=== PATIENT | female | born 1940 | race Caucasian/White ===

== ENCOUNTER 2019-02-19 11:47 | Inpatient (IN) | payer MEDICARE ==
[~2019-02-19 11:47] MED LIST: Ondansetron PF 4 MG/2 ML Vial ONE; PHENYLEPHRINE-NS 100 MCG/ML 10 ML SYRINGE ONE; PROPOFOL 200 MG/20 ML VIAL ONE
[2019-02-19] MEDS ORDERED: Morphine 4 MG/ML VIAL ONE ×2 (12:25→15:19)
[2019-02-19 12:36] LABS: #Eosinphils 0.4 thou/uL (0.0-0.7); #Lymphocytes 1.2 thou/uL (1.20-3.40); #Monocytes 0.6 thou/uL (0.11-0.59); #Neutrophils 8.4 thou/uL (1.40-6.50); %Basophils 0.4 % (0.0-1.0); %Eosinophils 3.7 % (0.0-10.0); %Lymphocytes 11.6 % (21.0-51.0); %Monocytes 5.8 % (0.0-10.0); %Neutrophils 78.5 % (42.0-75.0); Hemoglobin 11.9 g/dL (12.0-16.0); Mean Corpuscular HGB CONC 32.1 g/dL (32.0-36.0); Mean Corpuscular Hemoglobin 26.5 pg (27.0-31.0); Mean Corpuscular Volume 82.6 fL (78.0-98.0); Mean Platelet Volume 6.9 fL (7.4-10.4); Platelet Count 232 thou/uL (130-400); RBC Distribution Width 13.6 % (11.5-14.5); Red Blood Cell (RBC) Count 4.47 mill/uL (4.20-5.40); White Blood Cell (WBC) Count 10.7 thou/uL (4.8-10.8)
[2019-02-19 12:41] LABS: PTT 37.4 SEC (22.9-36.1); Prothrombin Time 13.6 SEC (12.0-14.7)
--- NOTE | 2019-02-19 12:51 | RAD ---
EXAM: XR Hip Lt 2-3 View PROVIDED CLINICAL HISTORY: Left hip pain status post injury COMPARISON: None FINDINGS: Displaced left femoral neck fracture. No additional fracture is evident. Left hip joint space appears preserved. IMPRESSION: Displaced left femoral neck fracture.
--- NOTE | 2019-02-19 12:52 | RAD ---
EXAM: Portable chest PROVIDED CLINICAL HISTORY: Preop COMPARISON: 04/19/2014 FINDINGS: Cardiac and mediastinal silhouette is stable in appearance. No focal consolidation, pleural fluid or pneumothorax evident. IMPRESSION: No evidence for an acute cardiopulmonary process.
[2019-02-19 12:55] LABS: ALT (SGPT) 15 U/L (8-55); AST (SGOT) 18 U/L (5-34); Albumin 3.8 g/dL (3.4-4.8); Alkaline Phosphatase 70 U/L (40-150); Anion Gap 12 mmol/L (10-20); BUN (Urea Nitrogen) 26 mg/dL (9.8-20.1); Bilirubin, Total 0.3 mg/dL (0.2-1.2); Calc. Creatinine Clearance 0 mL/min (70-130); Carbon Dioxide 22 mmol/L (23-31); Chloride 109 mmol/L (98-107); Estimated GFR-MDRD 50; Globulin 2.7 g/dL (2.4-3.5); Glucose 116 mg/dL (83-110); Potassium 4.6 mmol/L (3.5-5.1); Protein, Total 6.5 g/dL (6.0-8.3); Sodium 138 mmol/L (136-145)
[2019-02-19] MEDS ORDERED: Vancomycin HCl 1.5 GM in Sodium Chloride 0.9% 250 ML 300 ML IVPB SCH ×2 (14:15→16:00)
[2019-02-19] MEDS ORDERED: Morphine 2 MG/ML SYRINGE SLOW IVP PRN (15:16)
[2019-02-19] MEDS ORDERED: traMADol HCl 50 MG TAB PO PRN (15:16)
[2019-02-19] MEDS ORDERED: Ondansetron ODT 4 MG TAB PO PRN ×2 (15:16→17:38)
[2019-02-19] MEDS ORDERED: Ondansetron PF 4 MG/2 ML Vial IVP PRN ×2 (15:16→17:38)
[2019-02-19] MEDS ORDERED: Cyclobenzaprine 10 MG TAB PO PRN (15:16)
[2019-02-19] MEDS ORDERED: hydrALAZINE 20 MG/ML VIAL SLOW IVP PRN (15:16)
[2019-02-19] MEDS ORDERED: Morphine 4 MG/ML VIAL SLOW IVP PRN (15:16)
[2019-02-19] MEDS ORDERED: Dextrose 5% in Water 1,000 ML IV PRN (15:16)
[2019-02-19] MEDS ORDERED: Acetaminophen 1,000 MG in Premix Bag 1 BAG IVPB SCH (15:16)
[2019-02-19] MEDS ORDERED: Sodium Chloride 0.9% 1,000 ML IV SCH ×2 (15:16→17:45)
[2019-02-19] MEDS ORDERED: Dextrose 50% Abboject 50 ML SYRINGE SLOW IVP PRN (15:16)
--- NOTE | 2019-02-19 15:21 | CON ---
DATE OF CONSULTATION: This is Roman Sanderson PA-C dictating a report for León Quinonez MD. We were asked to see the patient by ER and Trauma. She was leaving [employer], stepped off the curb, fell and ended up fracturing her left femoral neck. No loss of consciousness. No other injuries that she attests to. She has been a patient of ours in the past. She has had bilateral knee replacements by Dr. Murphy. Pain currently is tolerable and she is surrounded by family at bedside. PAST MEDICAL HISTORY: Positive for hypertension, constipation, depression, some glaucoma, arthritic like conditions. PAST SURGICAL HISTORY: Elbow, right eye, and bilateral total knee replacements. SOCIAL HISTORY: Past smoker, quit in the 80s, very rare EtOH beverage. FAMILY HISTORY: For this visit is noncontributory. CURRENT MEDICATIONS: She takes hypertensive medication, three eyedrops for her glaucoma, Meloxicam. They will get us an updated medication list, but she is not on any blood thinners. ALLERGIES: AMOXICILLIN/AUGMENTIN, PYRIDIUM. REVIEW OF SYSTEMS: Positive for left hip pain and other arthritic pains, otherwise no other positive review of systems. PHYSICAL EXAMINATION: GENERAL: Well-nourished, well-developed female, alert and pleasant, in no acute distress. Speech clear. Affect pleasant. Answer questions appropriately. Alert and orient x3. Family is at bedside. HEENT: Normal exam. Face symmetric. Tongue midline. NECK: Supple. Trachea midline. EXTREMITIES: Upper extremities; equal, size, shape symmetry normal bulk and tone. RESPIRATORY: No distress. Breathing comfortably. EXTREMITIES: Lower extremities; equal, size, shape, symmetry. Normal bulk and tone with the exception of left lower extremity a little bit shortened and outward rotated and also some tenderness to palpation over the hip. Bilateral DP, PT pulses are grossly intact and she is able to move her feet and digits well. ASSESSMENT: Left femoral neck fracture. PLAN: I spoke to the patient's family, so she is cleared by Trauma. We would like to do a hemiarthroplasty this afternoon. The patient did have breakfast at 7 and had a small wafer cookie at [employer] around 10. I explained the risks and benefits of surgery. They understand the risks and benefits and all are agreeable to go forth with the hemiarthroplasty today. We will get the patient scheduled consented. Antibiotics ordered and get her on the surgery schedule. Job ID: [id number]
[2019-02-19] MEDS ORDERED: Fentanyl 100 MCG/2 ML VIAL SLOW IVP PRN (15:52)
--- NOTE | 2019-02-19 16:35 | HP ---
This is Joel Patel PA-C dictating a report for Edward Hauser DO. REQUESTING PHYSICIAN: Selvin Alston DO CONSULTATIONS: Orthopedics, Dr. Quinonez. HISTORY OF PRESENT ILLNESS: The patient is an 78-year-old woman, who had just left orthodox, she was speaking with her friend, when she turned to walk away, missed a step and fell landing on her left hip. The patient denies any loss of consciousness or striking her head. Denies any syncopal episodes prior to falling. The patient was brought to the emergency department, where she underwent evaluation and examination and was noted to have a left hip fracture at which time we were asked to evaluate the patient for admission and obtain Orthopedic consultations. ALLERGIES: PENICILLIN AND PYRIDIUM. THE PATIENT STATES PENICILLIN GAVE HER HIVES AND IS UNSURE WHAT HAPPENED WHEN SHE TOOK PYRIDIUM. CURRENT MEDICATIONS: Losartan, meloxicam, eyedrops for glaucoma. PAST MEDICAL HISTORY: Glaucoma, osteoarthritis, hypertension, depression. PAST SURGICAL HISTORY: Bilateral knee replacement, right elbow surgery, and total hysterectomy. SOCIAL HISTORY: The patient lives independently with family. She denies using assistive device. She is a former smoker greater than 30 years ago. She denies drug use and has occasional glass of wine. REVIEW OF SYSTEMS: Ten-point review of systems is negative as otherwise stated. PHYSICAL EXAMINATION: VITAL SIGNS: Blood pressure is 179/74, heart rate is 74, respirations are 16, oxygen saturation is 97% on room air, and temperature is 98.7. GENERAL: The patient is resting comfortably in bed. She is awake, alert, and oriented x3. Mary Coma Scale is 15. HEENT: Head is normocephalic and atraumatic. Eyes, extraocular motion intact. PERRLA bilaterally. Ears are atraumatic without discharge. Nose is atraumatic without discharge. Oropharynx is clear. NECK: Nontender. Trachea is midline. No JVD. CHEST: Clear to auscultation with good inspiratory and expiratory effort. HEART: Regular rate and rhythm, and noticeable distant diastolic murmur. ABDOMEN: Soft, flat, nontender with active bowel sounds. PELVIS: Stable with tenderness to palpation to the left hip consistent with her fracture. EXTREMITIES: Neurovascularly intact x4. The patient does have multiple areas of bruising that she states have been from previous falls. LABORATORY FINDINGS: White blood cell count 10.7, hemoglobin 11.9, hematocrit 36.9, platelets 232. Sodium 138, potassium 4.6, chloride 109, CO2 of 22, BUN 26, creatinine 1.05, glucose 116. LFTs are unremarkable. PT 13.6, INR 1.0, PTT 34.4. RADIOGRAPHIC FINDINGS: AP chest x-ray shows no acute cardiopulmonary process. Views of the left hip showed displaced left femoral neck fracture. ASSESSMENT/PLAN: 1. Status post ground level fall. 2. Left hip fracture. 3. Acute pain secondary to above. 4. History of hypertension, glaucoma, arthritis, and depression. PLAN: Plan will be to admit the patient to the surgical floor. Per discussion with Dr. Quinonez, we will examine the patient in the emergency department. We will take her to the operating room today. Postoperatively, she will have physical and occupational therapy, pulmonary toilet, gastritis, mechanical VTE prophylaxis. Postoperatively, we will talk with Case Management regarding placement. The evaluation, examination, laboratory, and radiographic findings will be discussed with Dr. Hauser after this dictation. Job ID: [id number]
[2019-02-19] MEDS ORDERED: Levofloxacin 500 mg/D5W 100 ml Premix Bag ONE (16:44)
[2019-02-19] MEDS ORDERED: Midazolam HCl 2 mg/2 ml Vial ONE (17:20)
[2019-02-19] MEDS ORDERED: Fentanyl 100 MCG/2 ML VIAL ONE (17:20)
[2019-02-19] MEDS ORDERED: Propofol 500 MG/50 ML VIAL ONE (17:20)
[2019-02-19] MEDS ORDERED: Ketamine 50 MG/ML (10ML VIAL) ONE (17:20)
[2019-02-19] MEDS ORDERED: Fleet Enema 133 ML BOT PR PRN (17:38)
[2019-02-19] MEDS ORDERED: Milk Of Magnesia 30 ML UDCUP PO PRN (17:38)
[2019-02-19] MEDS ORDERED: Cepastat Lozenges 1 LOZ PO PRN (17:38)
[2019-02-19] MEDS ORDERED: Bisacodyl 10 MG SUPP PR PRN (17:38)
[2019-02-19] MEDS ORDERED: Tranexamic Acid 1,000 MG/10 ML VIAL ONE (17:49)
[2019-02-19] MEDS ORDERED: Phenylephrine HCL 10 MG/ML VIAL ONE (17:59)
[2019-02-19] MEDS ORDERED: Promethazine HCl 25 MG/ML VIAL IM PRN (19:26)
[2019-02-19] MEDS ORDERED: Ondansetron HCl/PF 4 MG/2 ML Vial IVP PRN (19:26)
[2019-02-19] MEDS ORDERED: Promethazine HCl 25 MG/ML VIAL SLOW IVP PRN (19:26)
--- NOTE | 2019-02-19 20:29 | RAD ---
EXAM: 2 views of the left hip HISTORY: Left hip arthroplasty for femoral neck fracture COMPARISON: None FINDINGS: 2 views of the left hip shows the patient is status post left hip arthroplasty without andrea hardware lucency or fracture. Air in the soft tissues is from recent surgery. IMPRESSION: Status post left hip arthroplasty without evidence of complication.
[2019-02-19] MEDS ORDERED: Tranexamic Acid 1,000 MG in Sodium Chloride 0.9% 100 ML IVPB SCH (21:00)
[2019-02-19] MEDS: Ibuprofen 800 MG TAB PO SCH (22:20)
[2019-02-19] MEDS: Ferrous Gluconate 324 MG TAB PO SCH (22:21)
[2019-02-19] MEDS: Senokot S 8.6-50 MG TAB PO SCH (22:24)
[2019-02-19] MEDS: Acetaminophen 500 MG TAB PO SCH (23:14)
--- NOTE | 2019-02-20 00:27 | OP ---
DATE OF PROCEDURE: 02/19/2019 PROCEDURE PERFORMED: Left hip hemiarthroplasty for femoral neck fracture. SUPERVISOR CELLARS: Roman Sanderson PA-C BLOOD LOSS: 200. SPECIMEN: None. DRAINS: None. COMPLICATION: None. ANESTHESIA: Spinal anesthetic. DESCRIPTION OF PROCEDURE: The patient was taken to the operating room where spinal anesthesia induced. She received Levaquin and vancomycin preoperatively due to allergies. The left hip was prepped and draped in sterile fashion. The patient was placed in lateral decubitus position. Hip was prepped and draped in usual sterile fashion. We made an oblique incision in the greater trochanter. Dissection was carried down to the IT band, which was divided distally extended proximally. Self-retraining retractors were placed in the wound. Anterior one-third abductor mechanism was taken down using Bovie electrocautery. Hip capsule was incised. The femoral neck was cut and the femoral head was extracted and sized. The acetabulum was explored for loose bodies and loose bodies were removed. The acetabulum was irrigated. The femur was broached up to the appropriate size and appropriate size stem was impacted into place, along with the appropriate head. Hip was reduced without difficulty. Capsule was repaired with #2 Vicryl. Abductor was repaired with #2 Vicryl and #5 Ethibond. IT band was repaired with 2-0 Vicryl, #2 Quill, subcu closed with 0 Quill, skin was closed with 2-0 Monoderm and skin glue was applied. IMPLANTS USED: Stewart Accolade II size 4 stem with a standard neck and a 45 Unitrax head. Job ID: [id number]
[2019-02-20 03:13] VITALS: BMI 38.2
[2019-02-20] MEDS: Acetaminophen 500 MG TAB PO SCH ×4 (05:33→23:56)
[2019-02-20] MEDS: Ibuprofen 800 MG TAB PO SCH ×3 (05:33→21:02)
[2019-02-20 06:09] LABS: Hemoglobin 9.9 g/dL (12.0-16.0); Mean Corpuscular HGB CONC 30.5 g/dL (32.0-36.0); Mean Corpuscular Hemoglobin 25.4 pg (27.0-31.0); Mean Corpuscular Volume 83.4 fL (78.0-98.0); Mean Platelet Volume 6.8 fL (7.4-10.4); Platelet Count 193 thou/uL (130-400); RBC Distribution Width 13.4 % (11.5-14.5); White Blood Cell (WBC) Count 11.2 thou/uL (4.8-10.8)
[2019-02-20 06:10] LABS: #Eosinphils 0.6 thou/uL (0.0-0.7); #Lymphocytes 1.3 thou/uL (1.20-3.40); #Monocytes 0.8 thou/uL (0.11-0.59); #Neutrophils 8.6 thou/uL (1.40-6.50); %Basophils 0.3 % (0.0-1.0); %Eosinophils 5.5 % (0.0-10.0); %Monocytes 6.7 % (0.0-10.0); %Neutrophils 76.4 % (42.0-75.0); Hemoglobin 9.9 g/dL (12.0-16.0); Mean Corpuscular Hemoglobin 25.8 pg (27.0-31.0); Mean Corpuscular Volume 83.4 fL (78.0-98.0); Platelet Count 193 thou/uL (130-400); RBC Distribution Width 13.5 % (11.5-14.5); Red Blood Cell (RBC) Count 3.84 mill/uL (4.20-5.40); White Blood Cell (WBC) Count 11.3 thou/uL (4.8-10.8)
[2019-02-20 06:29] LABS: Anion Gap 9 mmol/L (10-20); BUN (Urea Nitrogen) 23 mg/dL (9.8-20.1); Calc. Creatinine Clearance 67 mL/min (70-130); Calcium 8.1 mg/dL (7.8-10.44); Carbon Dioxide 21 mmol/L (23-31); Chloride 109 mmol/L (98-107); Estimated GFR-MDRD 53; Glucose 103 mg/dL (83-110); Potassium 4.1 mmol/L (3.5-5.1); Sodium 135 mmol/L (136-145)
[2019-02-20] MEDS: Famotidine 20 MG TAB PO SCH (08:34)
[2019-02-20] MEDS: Senokot S 8.6-50 MG TAB PO SCH ×2 (08:34→21:02)
[2019-02-20] MEDS: Ferrous Gluconate 324 MG TAB PO SCH ×2 (08:34→21:02)
[2019-02-20] MEDS: Multivitamin W/ Minerals 1 TAB PO SCH (08:34)
[2019-02-20] MEDS: Ascorbic Acid 500 mg Chewable Tablet PO SCH ×2 (08:34→21:03)
[2019-02-20] MEDS: Aspirin 81 mg Enteric Coated Tablet PO SCH ×2 (08:41→21:02)
--- NOTE | 2019-02-20 10:08 | PRG ---
DATE OF SERVICE: SUJECTIVE: Ms. Ly is an 78-year-old female, who is status post ground-level fall. She sustained left hip fracture. She underwent ORIF of left hip fracture later today. post op, patient report doing good. Pain is well control. She develop no fever or shortness of breath Patient was laying down in bed with no acute distress. Vital is stable Lung clear Heart regular rate and rythm Abdominal soft non distended Extremity neurovascular intact x4 Plan: continue supportive care Continue pain control Will be working with PT/OT tomorrow Job ID: [id number] MTDD
[2019-02-20] MEDS ORDERED: Hydrocortisone Valerate 0.2% Cream 60 gm Tube TOP PRN (10:42)
[2019-02-20] MEDS: traMADol HCl 50 MG TAB PO PRN (13:06)
--- NOTE | 2019-02-20 14:11 | PRG ---
DATE OF SERVICE: 02/20/2019 SUBJECTIVE: The patient is an 78-year-old female, postop day 1, status post left hip hemiarthroplasty for femoral neck fracture status post ground level fall. The patient is doing well this morning. PT will plan to evaluate the patient today, rehab screen ordered. The patient plans to go to [facility] in [place] before returning home with home health and family support. OT evaluated the patient this morning and recommended continuing OT 3 to 5 times per week. The patient had complained of her eczema itching and bothering her, and requested hydrocortisone cream or a home prescription, which was ordered. OBJECTIVE: VITAL SIGNS: Temperature 97.8 Fahrenheit, pulse 63, respiratory rate 20, and O2 saturation 94% on CPAP, and blood pressure 103/63. GENERAL: The patient is resting comfortably in bed. HEENT: Unremarkable. LUNGS: Clear to auscultation bilaterally, good inspiratory and expiratory effort. HEART: Regular rate and rhythm. ABDOMEN: Active bowel sounds, soft, nontender to palpation. Extremities: Left hip bandaging intact, dry, clean. LABORATORY DATA: White blood cell count 11.2, hemoglobin 9.9, hematocrit 32.5. Sodium 135, potassium 4.1, chloride 109, carbon dioxide 21, BUN 23, creatinine 1.01, glucose 103, calcium 8.1. ASSESSMENT: 1. Left hip fracture status post ground level fall. 2. Postop day 1, status post left hip hemiarthroplasty for femoral neck fracture. 3. History of hypertension, glaucoma, arthritis, depression, eczema. PLAN: 1. Continue PT/OT, rehab screen for placement at [facility], hydrocortisone cream for eczema. Jose in place, we will reconsider necessity today. Continue pain control, DVT prophylaxis, BP under control at this time. The patient was seen and evaluated by Dr. Guillen during morning rounds. Discussed plan of care with the patient and family, who are in agreement. Job ID: [id number] MTDD
[2019-02-20] MEDS ORDERED: BRINZOLAMIDE 1% EA EYE SCH (15:00)
[2019-02-20] MEDS: DORZOLAMIDE 2% EA EYE SCH ×2 (17:28→21:00)
[2019-02-20] MEDS: Triamcinolone 0.1% Cream 15 GM TUBE TOP PRN (17:29)
[2019-02-20] MEDS ORDERED: BIMATOPROST 0.01% L EYE SCH (21:00)
[2019-02-20] MEDS: TIMOLOL 0.5% L EYE SCH (21:01)
[2019-02-20] MEDS: LATANOPROST L EYE SCH (21:02)
--- NOTE | 2019-02-21 01:05 | PRG ---
DATE OF SERVICE: 02/20/2019 SUBJECTIVE: Ms. Ly is an 78-year-old female status post ground level fall. She sustained left hip fracture. She underwent ORIF of left hip fracture. Postop day 1, the patient reports she has been doing good. Pain well controlled. She has been working with PT, OT. OBJECTIVE: GENERAL: The patient is lying down in bed, in no acute distress. VITAL SIGNS: Stable. LUNGS: Clear bilaterally. HEART: Regular rate and rhythm. ABDOMEN: Soft, nondistended. EXTREMITIES: Neurovascularly intact x4. PLAN: Plan will be to continue supportive care, continue pain control, continue working with PT, OT. The patient is waiting for placement. The patient wished to place in swing bed facility. Job ID: [id number]
[2019-02-21 05:35] LABS: Hemoglobin 10.1 g/dL (12.0-16.0); Mean Corpuscular HGB CONC 32.3 g/dL (32.0-36.0); Mean Corpuscular Hemoglobin 26.7 pg (27.0-31.0); Mean Corpuscular Volume 82.8 fL (78.0-98.0); Mean Platelet Volume 6.8 fL (7.4-10.4); Platelet Count 190 thou/uL (130-400); RBC Distribution Width 13.6 % (11.5-14.5); Red Blood Cell (RBC) Count 3.76 mill/uL (4.20-5.40); White Blood Cell (WBC) Count 11.7 thou/uL (4.8-10.8)
[2019-02-21] MEDS: Acetaminophen 500 MG TAB PO SCH ×3 (05:55→17:53)
[2019-02-21] MEDS: Ibuprofen 800 MG TAB PO SCH ×3 (05:55→14:20)
[2019-02-21 05:56] LABS: Anion Gap 10 mmol/L (10-20); BUN (Urea Nitrogen) 20 mg/dL (9.8-20.1); Calc. Creatinine Clearance 63 mL/min (70-130); Calcium 7.9 mg/dL (7.8-10.44); Carbon Dioxide 20 mmol/L (23-31); Chloride 112 mmol/L (98-107); Estimated GFR-MDRD 49; Glucose 137 mg/dL (83-110); Potassium 3.7 mmol/L (3.5-5.1); Sodium 138 mmol/L (136-145)
[2019-02-21 08:20] LABS: Magnesium 1.7 mg/dL (1.6-2.6); Phosphorus 2.9 mg/dL (2.3-4.7)
[2019-02-21] MEDS: Carvedilol 6.25 MG TAB PO SCH ×2 (08:39→19:55)
[2019-02-21] MEDS: Aspirin 81 mg Enteric Coated Tablet PO SCH ×2 (08:39→19:56)
[2019-02-21] MEDS: DULoxetine 60 MG CAP PO SCH (08:41)
[2019-02-21] MEDS: Losartan 25 MG TAB PO SCH (08:41)
[2019-02-21] MEDS: Ascorbic Acid 500 mg Chewable Tablet PO SCH ×2 (08:41→19:53)
[2019-02-21] MEDS: Ferrous Gluconate 324 MG TAB PO SCH ×2 (08:42→19:56)
[2019-02-21] MEDS: Famotidine 20 MG TAB PO SCH (08:42)
[2019-02-21] MEDS: Senokot S 8.6-50 MG TAB PO SCH ×2 (08:42→19:55)
[2019-02-21] MEDS: Multivitamin W/ Minerals 1 TAB PO SCH (08:42)
[2019-02-21] MEDS ORDERED: Potassium Phosphate 15 MMOL in Sodium Chloride 0.9% 250 ML 250 ML IVPB SCH (08:45)
[2019-02-21] MEDS ORDERED: Magnesium 2 GM/50 ML 2 GM in Premix Bag 1 BAG IVPB SCH (08:45)
[2019-02-21] MEDS: TIMOLOL 0.5% L EYE SCH ×2 (08:52→19:58)
[2019-02-21] MEDS: Triamcinolone 0.1% Cream 15 GM TUBE TOP PRN (08:53)
[2019-02-21] MEDS: DORZOLAMIDE 2% EA EYE SCH ×3 (08:53→19:57)
[2019-02-21] MEDS ORDERED: Brinzolamide 1% Ophth SUSP 10 ml Bottle EA EYE SCH (09:00)
[2019-02-21] MEDS ORDERED: Dorzolamide HCl 2% Ophth Soln 10 ml Bottle EA EYE SCH (09:00)
[2019-02-21] MEDS ORDERED: Multivit, Therapeutic 1 TAB PO SCH (09:00)
[2019-02-21] MEDS ORDERED: Timolol 0.5% Ophth Soln 5 ml Bottle L EYE SCH (09:00)
[2019-02-21] MEDS: traMADol HCl 50 MG TAB PO PRN ×2 (12:02→12:48)
[2019-02-21] MEDS: Ibuprofen 600 MG TAB PO SCH ×2 (14:19→20:01)
--- NOTE | 2019-02-21 14:57 | PRG ---
DATE OF SERVICE: 02/21/2019 SUBJECTIVE: The patient is an 78-year-old female, postop day 2, status post left hip hemiarthroplasty for femoral neck fracture, status post ground-level fall. The patient did well with PT yesterday and did well overnight. The patient's Jose removed by the night team and the patient was able to void on her own this morning. The patient is accepted by [facility] with plans to go tomorrow, before returning home with home health and family support. The patient's magnesium, potassium, and phosphorus were repleted this morning. OBJECTIVE: VITAL SIGNS: Temperature 98.5 Fahrenheit, pulse 65, respiratory rate 16, oxygen saturation 95% on room air, blood pressure 136/72. GENERAL: The patient is resting comfortably in bed. HEENT: Unremarkable. LUNGS: Clear to auscultation bilaterally. HEART: Regular rate and rhythm. ABDOMEN: Active bowel sounds, soft, nontender to palpation. EXTREMITIES: Left hip wound clean, dry, and intact. LABORATORY DATA: White blood cell count 11.7, hemoglobin 10.1, hematocrit 31.2. Sodium 138, potassium 3.7, chloride 112, carbon dioxide 20, BUN 20, creatinine 1.07, glucose 137, calcium 7.9, phosphorus 2.9, magnesium 1.7. ASSESSMENT: 1. Left hip fracture, status post ground-level fall. 2. Postoperative day 2, status post left hip hemiarthroplasty for femoral neck fracture. 3. History of hypertension, glaucoma, arthritis, and depression. PLAN: Continue PT/OT. Continue pain control. DVT prophylaxis. Blood pressure under control at this time. Planning for transfer to [facility] tomorrow, 02/22. The patient was seen and evaluated by Dr. Hauser during morning rounds. Discussed the plan of care with the patient and family who are in agreement. Job ID: [id number] [facility]
[2019-02-21] MEDS: LATANOPROST L EYE SCH (19:58)
[2019-02-21] MEDS ORDERED: Non-Formulary Item 1 EACH (Bimatoprost [Lumigan 0.01% Ophth Soln] 1 DROP) L EYE SCH (21:00)
--- NOTE | 2019-02-21 22:04 | PRG ---
DATE OF SERVICE: 02/21/2019 SUBJECTIVE: This is an 78-year-old female, postop day #2, status post left hip hemiarthroplasty for femoral neck fracture. The patient remains on the surgical floor. The patient is awake, alert, watching TV, and reports that her pain is well controlled at this time. The patient continues to tolerate a regular diet. The patient states that she still has not had a bowel movement. OBJECTIVE: VITAL SIGNS: Stable. Remains afebrile. EXTREMITIES: Moves all extremities, positive distal pulses. Left hip dressing clean, dry, and intact. ABDOMEN: Soft, nontender, nondistended. IMPRESSION: 1. Status post ground level fall with left hip fracture. 2. Postop day 2, status post left hip hemiarthroplasty. 3. History of hypertension, glaucoma, arthritis, and depression. PLAN: Continue PT and OT. Continue pain control. Continue DVT prophylaxis. The patient should be going to swing bed in [place] tomorrow. The plan was discussed with the patient who agrees. Job ID: [id number]
[2019-02-22] MEDS: Acetaminophen 500 MG TAB PO SCH ×3 (00:52→11:19)
[2019-02-22] MEDS: Ibuprofen 600 MG TAB PO SCH (06:14)
[2019-02-22] MEDS: Aspirin 81 mg Enteric Coated Tablet PO SCH (08:09)
[2019-02-22] MEDS: Multivitamin W/ Minerals 1 TAB PO SCH (08:09)
[2019-02-22] MEDS: Ferrous Gluconate 324 MG TAB PO SCH (08:09)
[2019-02-22] MEDS: Ascorbic Acid 500 mg Chewable Tablet PO SCH (08:09)
[2019-02-22] MEDS: Losartan 25 MG TAB PO SCH (08:10)
[2019-02-22] MEDS: Carvedilol 6.25 MG TAB PO SCH (08:10)
[2019-02-22] MEDS: DULoxetine 60 MG CAP PO SCH (08:10)
[2019-02-22] MEDS: Senokot S 8.6-50 MG TAB PO SCH (08:10)
[2019-02-22] MEDS: Famotidine 20 MG TAB PO SCH (08:10)
[2019-02-22] MEDS: DORZOLAMIDE 2% EA EYE SCH (08:11)
[2019-02-22] MEDS: TIMOLOL 0.5% L EYE SCH (08:12)
[2019-02-22] MEDS ORDERED: Polyethylene Glycol 3350 17 GM Packet PO SCH (09:00)
[2019-02-22] MEDS ORDERED: Bisacodyl 10 MG SUPP PR SCH (09:00)
[2019-02-22 11:03] VITALS: BP 106/59; TEMP 98.6
--- NOTE | 2019-02-23 09:59 | DIS ---
DATE OF ADMISSION: 02/19/2019 DATE OF DISCHARGE: 02/22/2019 PRIMARY DIAGNOSES: Left hip fracture status post ground level fall, status post left hip hemiarthroplasty for femoral neck fracture. SECONDARY DIAGNOSES: Hypertension, glaucoma, arthritis, depression. CONSULTS: León Quinonez MD of Orthopedic surgery. IMAGING: Chest x-ray: no evidence for acute cardiopulmonary process. Preop hip x-ray: displaced left femoral neck fracture. Postop hip x-ray: status post left hip arthroplasty without evidence of complications. PROCEDURE PERFORMED: Left hip hemiarthroplasty for femoral neck fracture. DISCHARGE MEDICATIONS: 1. 1000 mg acetaminophen p.o. q.6 hours p.r.n. 2. One multivitamin p.o. daily. 3. One drop brinzolamide each eye t.i.d. 4. One drop bimatoprost one eye at bedtime. 5. 1-2 tabs Lortab 10/325 p.o. q.6 hours p.r.n. 6. One drop timolol maleate one eye b.i.d. 7. 15 mg meloxicam p.o. daily. 8. 100 mg losartan p.o. daily. 9. One drop dorzolamide each eye t.i.d. 10. 50 mg duloxetine p.o. daily. 11. 12.5 mg carvedilol p.o. b.i.d. DISCONTINUED MEDICATIONS: 1. 500 mg vitamin C p.o. b.i.d. 2. 81 mg aspirin p.o. b.i.d. 3. 10 mg Dulcolax daily p.r.n. 4. cepastat p.o. q.2 hours p.r.n. 5. 5 mg Flexeril p.o. t.i.d. p.r.n. 6. 20 mg famotidine p.o. daily. 7. 50 mcg fentanyl q.1 hour p.r.n. 8. 324 mg ferrous gluconate p.o. b.i.d. 9. 10 mg hydralazine, slow IVP q.4 hours p.r.n. 10. 600 mg ibuprofen p.o. q.8 hours. 11. DuoNeb. 12. Magnesium. 13. Zofran. 14. MiraLAX. 15. Senokot. 16. Sodium phosphate. 17. 50 mg tramadol p.o. q.6 hours p.r.n. 18. 100 mg tramadol p.o. q.6 hours p.r.n. HISTORY OF PRESENT ILLNESS/HOSPITAL COURSE: The patient is an 78-year-old female, who presented to the ED after a ground level fall. She underwent evaluation and examination from which it was determined that she had a left hip fracture. Surgery was consulted for admission and Orthopedics was consulted once the patient was admitted. She was evaluated by Orthopedics and a left hip hemiarthroplasty for femoral neck fracture was performed on the day of admission. She had a Jose put in place during the surgery and it was removed the evening of 02/20, after which she was able to void. She participated with PT/OT during her hospitalization and her rehab potential was determined to be good. The rehab screen was performed and the patient was accepted by a swing bed in [place]. She was seen and evaluated by Dr. Hauser before discharge. The patient was stable and agreeable to her plan of care. PHYSICAL EXAM: General: The patient is resting comfortably in bed GEENT: Unremarkable Lungs: CTAB Heart: RRR Abdomen: Active bowel sounds, soft, non-tender to palpation. Extremities: left hip wound clean, dry, intact. DISPOSITION: Stable. DISCHARGE INSTRUCTIONS: 1. Location: [facility]. 2. Diet: Regular. 3. Activity: As tolerated. 4. Followup: Followup with Dr. Quinonez. No need to follow up with Dr. Hauser. This is merely a summary of the patient's hospitalization. For full details, please see her medical record in its entirety. Job ID: [id number] [facility]
--- NOTE | 2019-02-25 15:19 | EKG ---
Test Reason : ER INDICATION Blood Pressure : / mmHG Vent. Rate : 057 BPM Atrial Rate : 057 BPM P-R Int : 212 ms QRS Dur : 078 ms QT Int : 440 ms P-R-T Axes : 069 -10 070 degrees QTc Int : 428 ms Sinus bradycardia with 1st degree A-V block Otherwise normal ECG Confirmed by MINI BLAND, MIQUEL ([id number]), dictionary editor JOSE GUADALUPE BROOKS ([id number]) on 02/25/2019 3:18:26 PM Referred By: Confirmed By:MIQUEL MORSE MD
== END 2019-02-22 12:06 | DRG 470 ==
LOC: ERS 11:47 → SDC 16:22 → SURG B 20:15
PROVIDERS: ADMIT Surgery; ATTEND Surgery
PROC: 0SRS0JZ Replacement of Left Hip Joint, Femoral Surface with Synthetic Substitute, Open Approach (ICD-10-PCS; principal; 2019-02-19)
DX: S72.002A Fracture of unspecified part of neck of left femur, initial encounter for closed fracture (principal); I10 Essential (primary) hypertension; M19.90 Unspecified osteoarthritis, unspecified site; H40.9 Unspecified glaucoma; F32.9 Major depressive disorder, single episode, unspecified; W18.39XA Other fall on same level, initial encounter; Z96.653 Presence of artificial knee joint, bilateral; Y93.89 Activity, other specified; Z88.0 Allergy status to penicillin; Z88.8 Allergy status to other drugs, medicaments and biological substances; Z90.710 Acquired absence of both cervix and uterus; Z87.891 Personal history of nicotine dependence
CPT/HCPCS: 36415; 71045; 80048; 80053; 83735; 84100; 85025; 85027; 85610; 85730; 93005; 94660; 96361; 96374; 96376; G0390; J0131; J1956; J2250; J2270; J2370; J2405; J2704; J3010; J3370; J3475; J3490; J7050